=== PATIENT | male | born 1995 | race African-American/Black ===

== ENCOUNTER 2017-08-05 06:28 | Emergency (ER) | payer OTHER, SELFPAY ==
[2017-08-05 06:29] VITALS: BP 121/97; PULSE 66; RESP 17; TEMP 36.6; O2SAT 99; BMI 25.8
--- NOTE | 2017-08-05 07:11 | RAD_ITS ---
STUDY: X-RAY - RIGHT ANKLE REASON FOR EXAM: Pain. TECHNIQUE: 3 view(s) of the ankle. COMPARISON: None. FINDINGS: There is an orthopedic plate and screws transfixing a healed fracture of the fibula and postoperative changes from syndesmotic fixation. There is a very small enthesophyte at the distal aspect of the medial malleolus. Normal tibiotalar articulation and ankle mortise. Normal visualized talus and calcaneus. The visualized subtalar, talonavicular, calcaneocuboid and tarsal articulations are normal. There is a small linear soft tissue calcification at the lateral aspect of the distal lower leg. RAD/Ankle min 3 Views IMPRESSION: Postoperative changes of the distal tibia and fibula without demonstrated complication. Electronically Signed: Rasheed Sanchez MD at 8:03 EDT Tel , Service support ,
--- NOTE | 2017-08-05 07:30 | ED.VISSUMM ---
- ER Visit Summary Date of Service: 08/05/17 Chief Complaint: Right ankle pain, back pain History of Present Illness: The patient is a 22 M who reports back pain and right ankle pain increasing over the past 3 days. Is a history of prior back surgery where he states he has had lumbar fusion. The surgery was performed 9 or 10 years ago in [place]. Patient states he has had gradual increase in his back pain with no known injury. He is also complaining of right ankle pain that is progressive as well. He had prior surgery to his right ankle approximately 4 years ago with plate and screws in place. He does not have any acute injury to the right ankle. Patient has not taken anything for pain at this time. Physical Examination: Vital signs are unremarkable. Patient is in no acute distress and is nontoxic appearing. Head and neck examination is normal. Heart is regular rate and rhythm. Palpable pulses are noted throughout. Lungs are clear with good air movement throughout. Abdomen is soft and nontender. Bowel sounds are noted. Extremity examination reveals mild tenderness around the anterior and lateral right ankle. No significant edema is noted. He has good distal pulses. He has normal sensation. Back examination reveals tenderness throughout the lower thoracic and lumbar spine around his prior surgical scar. He has tenderness to the bilateral paraspinal muscles. Good strength and sensation is noted to the lower extremities. Test Results: Right ankle x-rays are obtained which reveal hardware to be intact. Joint space is clean with no acute bony injury. Emergency Department Course and Treatment: Patient is given Naprosyn and Flexeril for pain. He began prescriptions for the same. He is referred to Dr. Mendieta for follow-up. Treatment Plan: [] Disposition: Discharge Impression: Acute on chronic low back pain. Right ankle sprain This note was generated with [employer] dictation software. It may contain incorrect words, spelling, and punctuation that were not noted in review of the chart prior to signing ED Disposition - Plan for ED Patient: Chief Complaint: Lower Extremity Injury Referrals: Care Physician,No Primary [Primary Care Provider] -
[2017-08-05] MEDS: Naproxen 500 MG Tablet PO (07:37)
--- NOTE | 2017-08-05 07:40 | ED.DEP ---
ED Disposition - Plan for ED Patient: Disposition: Home or Assisted Living Chief Complaint: Lower Extremity Injury Instructions: ED Sprain Strain Lumbar, ED Sprain Ankle W X Ray Prescriptions: Naproxen [Naprosyn] 500 mg PO BID PRN #20 tablet Cyclobenzaprine [Flexeril] 10 mg PO TID PRN #20 tablet PRN Reason: Muscle Spasm Referrals: Maurisio Mendieta DO [STAFF PHYSICIAN] - As Needed
== END 2017-08-05 07:50 | disposition home or self-care (01) ==
PROVIDERS: Emergency Provider Emergency Medicine
DX: S93.401A Sprain of unspecified ligament of right ankle, initial encounter (principal); G89.29 Other chronic pain; M54.5 Low back pain; X58.XXXA Exposure to other specified factors, initial encounter; Y93.9 Activity, unspecified; Y92.89 Other specified places as the place of occurrence of the external cause; Y99.9 Unspecified external cause status; Z98.1 Arthrodesis status; Z87.891 Personal history of nicotine dependence
CPT/HCPCS: 73610; 99283